=== PATIENT | male | born 1940 ===

== ENCOUNTER 2023-02-21 17:22 | Emergency (ER) | payer OTHER ==
[~2023-02-21] VITALS: Ht 188 cm; Wt 59.0 kg
[~2023-02-21 17:22] MED LIST: DABI150C PO
[2023-02-21 18:33] LABS: BASOPHILS ABSOLUTE AUTO 0.09 K/mm3 (0.00-0.23); BASOPHILS PERCENT AUTO 1 % (0-2); EOSINOPHILS PERCENT AUTO 0 % (0-6); Hematocrit 40.4 % (37.0-53.0); Hemoglobin 14.1 g/dL (13.5-17.5); IMMATURE GRAN ABSOLUTE AUTO 0.22 K/mm3 (0.00-0.10); IMMATURE GRAN PERCENT AUTO 2 % (0-1); LYMPHOCYTES ABSOLUTE AUTO 0.85 K/mm3 (0.84-5.20); LYMPHOCYTES PERCENT AUTO 7 % (21-46); MONOCYTES ABSOLUTE AUTO 0.96 K/mm3 (0.16-1.47); MONOCYTES PERCENT AUTO 7 % (4-13); Mean Corpuscular HGB Conc 34.9 g/dL (31.5-36.5); Mean Corpuscular Volume 106 fL (80-100); Mean Platelet Volume 10.9 fL (9.1-12.4); NEUTROPHILS PERCENT AUTO 84 % (41-73); NRBC ABSOLUTE 0.05 K/mm3 (0.00-0.02); NRBC Auto 0.4 /100 WBC (0.0-0.2); Platelet Count 232 K/mm3 (150-400); RDW Coefficient Variation 15.8 % (11.7-14.2); RDW Standard Deviation 61.9 fL (35.1-46.3); Red Blood Cell Count 3.81 M/mm3 (4.30-5.90); White Blood Cell Count 12.92 K/mm3 (4.00-11.30)
[2023-02-21 19:55] LABS: Albumin, Blood 2.4 g/dL (3.4-5.0); Albumin/Globulin Ratio 0.7 (0.8-1.8); Bilirubin, Total 7.2 mg/dL (0.1-1.0); Bun/Creatinine Ratio 29.6 (12.0-20.0); Calcium, Blood 7.8 mg/dL (8.5-10.1); Creatinine, Blood 0.51 mg/dL (0.60-1.20); Globulin, Blood 3.4 g/dL (2.2-4.0); Potassium, Blood 4.8 mmol/L (3.5-5.5); Total Protein, Blood 5.8 g/dL (6.4-8.2)
[2023-02-21 20:02] LABS: Bilirubin, Direct 4.2 mg/dL (0.0-0.3); Magnesium, Blood 1.8 mg/dL (1.6-2.4)
[2023-02-21 21:30] LABS: Percent Saturation 95.6 % (20.0-50.0)
[2023-02-22 00:57] LABS: International Normalized Ratio 1.33; Prothrombin Time Results 13.7 Sec (9.7-11.5)
== END 2023-02-22 02:25 | disposition short-term general hospital (02) ==
LOC: ER 17:22
PROVIDERS: Student in an Organized Health Care Education/Training Program
DX: K80.50 Calculus of bile duct without cholangitis or cholecystitis without obstruction (principal); I81 Portal vein thrombosis; R79.89 Other specified abnormal findings of blood chemistry; I48.91 Unspecified atrial fibrillation; I10 Essential (primary) hypertension; F17.210 Nicotine dependence, cigarettes, uncomplicated; Z79.899 Other long term (current) drug therapy
CPT/HCPCS: 74177; 80053; 82140; 82248; 83540; 83550; 83735; 85025; 85610; 85730; 93005; 93010; 99285-25; A9270; Q9967

== ENCOUNTER 2023-03-12 15:22 | Emergency (ER) | payer OTHER ==
[~2023-03-12] VITALS: Ht 177.8 cm; Wt 59.9 kg
[2023-03-12] MEDS ORDERED: MORP20L PO (16:52)
[2023-03-12] MEDS ORDERED: Kristalose20 GM PO (16:52)
--- NOTE | 2023-03-12 19:16 | NUR ---
Called to ER for pt with servere pain from metastatic disease. He is having severe constipation and servere urinary retention. Pt very anxious and painfull he has net been able to void or release stool. He is having deep visreal pain. He had one last paliative treatment and he feels he cannot have anymore. Contacted hospice team josephine can see him tomorrow. pt did not have a preferance for service. He geovanni 100% service connected . pt wants to go home but cannot bear weight. He ahs a roomate that is his caregiver and friend. He feels he can do hopsice at home. difficulties experinced with getting him affordable transport home Discussion for a plan may keep pt here and [place] in morning. Feel [place] may be best plan he is a high fall risk and would like to confirm that catheter will not obstruct of be to painful. hospice team notified and intake planned for tomorrow.
[2023-03-12 19:45] VITALS: BP 111/76
== END 2023-03-12 19:57 | disposition home or self-care (01) ==
LOC: ER 15:22
DX: C22.8 Malignant neoplasm of liver, primary, unspecified as to type (principal); Z51.5 Encounter for palliative care; Z79.899 Other long term (current) drug therapy; I48.91 Unspecified atrial fibrillation; I10 Essential (primary) hypertension; F17.210 Nicotine dependence, cigarettes, uncomplicated
CPT/HCPCS: 51702; 96374-59; 99283-25; A9270; J2270